=== PATIENT | male | born 1985 | race Caucasian/White ===

== ENCOUNTER 2017-03-14 18:32 | Emergency (ER) | payer MEDICAID, OTHER ==
[~2017-03-14] VITALS: Ht 182.9 cm; Wt 117.9 kg
[2017-03-14] MEDS ORDERED: KETOROLAC 60 MG/2 ML VIAL (J1885) IM ONE (19:30)
--- NOTE | 2017-03-14 20:41 | REP ---
LUMBOSACRAL SPINE SERIES: CLINICAL: Lower back pain. TECHNIQUE: AP, lateral, bilateral oblique and coned down views of the lumbosacral spine. FINDINGS: Alignment and lordosis maintained. No acute fracture/compression injury or subluxation. Subtle hypertrophic facet changes at the L4-5 and L5-S1 levels cannot be excluded. No evidence for spondylolysis or spondylolisthesis. IMPRESSION: Essentially normal age appropriate lumbosacral spine radiographs. Hypertrophic facet changes at the L5-S1 and L4-5 levels cannot be excluded. Signed by Bruno Reeves MD 03/24/2017 11:55 A
[2017-03-14] MEDS ORDERED: HYDR-3713 PO (20:53)
[2017-03-14] MEDS ORDERED: NAPR500T PO (20:53)
[2017-03-14] MEDS ORDERED: CYCL10TA PO (20:53)
[2017-03-14 20:54] VITALS: BP 130/74
[2017-03-14] MEDS ORDERED: NORCO 5/325MG TABLET (BULK FOR ED) PO ONE (21:00)
== END 2017-03-14 21:19 | disposition home or self-care (01) ==
LOC: M ED 19:33
DX: M51.37 Other intervertebral disc degeneration, lumbosacral region (principal); I10 Essential (primary) hypertension; E66.9 Obesity, unspecified; Z87.891 Personal history of nicotine dependence

== ENCOUNTER 2017-03-25 14:38 | Emergency (ER) | payer OTHER ==
[~2017-03-25] VITALS: Ht 182.9 cm; Wt 113.4 kg
[~2017-03-25 14:38] MED LIST: CYCL10TA PO; HYDR-3713 PO; NAPR500T PO
[2017-03-25] MEDS ORDERED: NS 1,000 ML IV ONE (15:15)
[2017-03-25 15:34] LABS: BASO % 0.4 % (0.0-1.0); EOS # 0.2 K/mm3 (0.0-0.50); EOS % 3.5 % (0.0-3.0); LARGE UNSTAINED CELL # 0.1 K/mm3 (0.0-0.4); LARGE UNSTAINED CELL % 1.2 % (0.0-4.0); LYMPH % 30.8 % (24.0-44.0); MEAN CORPUSCULAR HEMOGLOBIN 27.6 pg (27.0-33.0); MEAN CORPUSCULAR HGB CONC 32.9 g/dl (32.0-36.5); MEAN CORPUSCULAR VOLUME 83.8 fl (80.0-96.0); MONO # 0.3 K/mm3 (0.0-0.8); MONO % 4.4 % (0.0-5.0); NEUTROPHILS # 3.8 K/mm3 (1.8-7.7); NEUTROPHILS % 59.7 % (36.0-66.0); PLATELET COUNT, AUTOMATED 224 k/mm3 (150-450); RED CELL DISTRIBUTION WIDTH 14.6 % (11.5-14.5); WHITE BLOOD COUNT 6.3 K/mm3 (4.0-10.0)
[2017-03-25 15:59] LABS: ALBUMIN 3.5 GM/DL (3.2-5.2); ALBUMIN/GLOBULIN RATIO 0.88 (1.00-1.93); ALKALINE PHOSPHATASE 59 U/L (45-117); ALT/SGPT 29 U/L (12-78); ANION GAP 7 MEQ/L (8-16); AST/SGOT 12 U/L (15-37); BILIRUBIN,DIRECT < 0.1 MG/DL (0.0-0.2); BILIRUBIN,TOTAL 0.2 MG/DL (0.2-1.0); BLOOD UREA NITROGEN 16 MG/DL (7-18); CALCIUM LEVEL 8.6 MG/DL (8.5-10.1); CARBON DIOXIDE LEVEL 28 MEQ/L (21-32); CHLORIDE LEVEL 108 MEQ/L (98-107); CREATININE FOR GFR 1.14 MG/DL (0.70-1.30); GLOMERULAR FILTRATION RATE > 60.0 (>60); GLUCOSE, FASTING 77 MG/DL (70-105); POTASSIUM SERUM 3.8 MEQ/L (3.5-5.1); SODIUM LEVEL 143 MEQ/L (136-145); TOTAL PROTEIN 7.5 GM/DL (6.4-8.2)
[2017-03-25] MEDS ORDERED: ISOVUE-370 76% 100ML VIAL (Q9967) As Ordered ONE (16:13)
[2017-03-25 22:14] VITALS: BP 132/78
--- NOTE | 2017-03-26 07:09 | REP ---
CHEST, TWO VIEWS: HISTORY: Chest pain. COMPARISON: None. FINDINGS: The superior mediastinal structures are midline. The cardiac silhouette is unremarkable in size, shape and position. The diaphragmatic surfaces of the lungs are regular and the costophrenic angles are clear. The pulmonary mcfarland are clear. The imaged osseous structures are intact. IMPRESSION: There is no acute cardiopulmonary disease. Signed by Juanpablo Jasso DO 03/26/2017 09:20 A
--- NOTE | 2017-03-26 10:55 | REP ---
CT ANGIOGRAM CHEST: TECHNIQUE: Axial contrast enhanced images from the thoracic inlet to the upper abdomen using 100 mL Isovue 370 intravenous contrast material with multiplanar reformations. There is a tiny calcified granuloma in the left lower lobe. There are minor interstitial changes in the lower lobes bilaterally. There is no CT evidence of pulmonary embolism. There is no mediastinal, hilar or chest wall lymphadenopathy. The heart is not enlarged. There is no pleural or pericardial effusion. Visualized upper abdominal structures appear unremarkable. IMPRESSION: No CT evidence of pulmonary embolism. Signed by Miguel Henao MD 03/29/2017 03:59 P
--- NOTE | 2017-03-27 14:35 | ECGEPIP ---
Stationary ECG Study [facility] - ED Test Date: 2017-03-25 Pat Name: WESTLEY OATES Department: Room: - Gender: M Geriatrics Physician: abhijit : 1985 Requested By: MARY JANE Amaya Order Number: [id number] Reading MD: Corry Jackson Measurements Intervals [place] Rate: 118 P: 56 TN: 176 QRS: 141 QRSD: 122 T: 11 QT: 332 QTc: 466 Interpretive Statements SINUS TACHYCARDIA MARKED RIGHT AXIS DEVIATION RIGHT BUNDLE BRANCH BLOCK NO PRIOR FOR COMPARISON Electronically Signed On 03-27-2017 14:35:16 EDT by Corry Jackson
--- NOTE | 2017-03-27 14:40 | ECGEPIP ---
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
== END 2017-03-25 22:15 | disposition home or self-care (01) ==
LOC: EDBD 14:38 → M ED 16:21
DX: R07.9 Chest pain, unspecified (principal); F17.200 Nicotine dependence, unspecified, uncomplicated
CPT/HCPCS: 36415; 71020; 71275; 80048; 80076; 82375; 82550; 82553; 83880; 85025; 93005; 93041; 94760; 99284; Q9967

== ENCOUNTER 2018-11-21 18:33 | Emergency (ER) | payer MEDICAID, OTHER, SELFPAY ==
[~2018-11-21] VITALS: Ht 182.9 cm; Wt 122.7 kg
[~2018-11-21 18:33] MED LIST changes: +NAPR-50 PO; -NAPR500T PO
[2018-11-21] MEDS ORDERED: FURO20TA2 PO (18:48)
[2018-11-21] MEDS ORDERED: PERCOCET 5MG/325MG TAB PO ONE (19:15)
[2018-11-21 19:48] LABS: BLOOD UREA NITROGEN 15 MG/DL (7-18); CALCIUM LEVEL 8.5 MG/DL (8.5-10.1); CARBON DIOXIDE LEVEL 25 MEQ/L (21-32); CHLORIDE LEVEL 106 MEQ/L (98-107); CREATININE FOR GFR 0.84 MG/DL (0.70-1.30); GLOMERULAR FILTRATION RATE > 60.0 (>60); GLUCOSE, FASTING 100 MG/DL (70-100); POTASSIUM SERUM 3.9 MEQ/L (3.5-5.1); SODIUM LEVEL 137 MEQ/L (136-145)
[2018-11-21] MEDS ORDERED: MORPHINE 4 MG/ML 1ML VIAL/SYRINGE (J2270) IV ONE (20:45)
[2018-11-21] MEDS ORDERED: ISOVUE-370 76% 100ML VIAL (Q9967) As Ordered ONE (20:49)
[2018-11-21 21:00] LABS: ALBUMIN 3.4 GM/DL (3.2-5.2); ALT/SGPT 18 U/L (12-78); BILIRUBIN,DIRECT 0.2 MG/DL (0.0-0.2); BILIRUBIN,TOTAL 0.4 MG/DL (0.2-1.0); TOTAL PROTEIN 7.9 GM/DL (6.4-8.2)
[2018-11-21] MEDS ORDERED: FUROSEMIDE 20 MG/2 ML VIAL (J1940) IV ONE (23:00)
[2018-11-21 23:11] LABS: ABG BASE EXCESS 0.6 (-2.0-2.0); ABG HCO3 24.4 MEQ/L (22.0-26.0); ABG O2 SATURATION 95.3 % (95.0-99.0); ABG PARTIAL PRESSURE CO2 36.7 mmHg (35.0-45.0); ABG PARTIAL PRESSURE O2 71.5 mmHg (75.0-100.0); ABG TOTAL CO2 25.5 MEQ/L (22.0-29.0); ABG pH (ARTERIAL) 7.441 UNITS (7.350-7.450)
[2018-11-21] MEDS ORDERED: LevoFLOXacin 750 MG TABLET PO ONE (23:45)
[2018-11-21] MEDS ORDERED: NORCO 5/325MG TABLET (BULK FOR ED) PO ONE (23:45)
[2018-11-21] MEDS ORDERED: LEVA750T7 PO (23:47)
[2018-11-21] MEDS ORDERED: NORCOTAB PO (23:47)
[2018-11-21] MEDS ORDERED: LASI20TA3 PO (23:47)
[2018-11-21 23:53] VITALS: BP 135/76
--- NOTE | 2018-11-22 11:32 | REP ---
REPEAT DICTATION CT CHEST WITH CONTRAST: HISTORY: Further evaluation for right-sided chest pain. Right pleural effusion. Preliminary report is provided at the time examination by virtual radiology. Comparison CT study March 25, 2017. CT CONTRAST DOSE: 75 mL of intravenous Isovue 370. CT FINDINGS: There are bilateral infiltrates with atelectatic changes in the lower lobes. There is some similar opacity in the right middle lobe distribution. No evidence of aortic aneurysm or dissection is seen. There is somewhat less than optimal opacification of the pulmonary arterial tree. An equivocal filling defect is seen in the right lower lobe pulmonary arterial branches and pulmonary embolus cannot be completely excluded. No other significant abnormality. IMPRESSION: Bibasilar infiltrates. Equivocal filling defect right lower lobe pulmonary arterial tree may reflect pulmonary embolus. Consider repeat exam with better timed contrast bolus. Electronically Signed by Hayden Lowe MD 11/22/2018 06:44 P
--- NOTE | 2018-11-23 07:40 | REP ---
Clinical: Right rib pain Technique: Frontal view of the chest with multiple views of the right hemithorax. Findings: Frontal view of the chest demonstrates bibasilar atelectasis and possible small right pleural effusion. Multiple views of the right hemithorax demonstrates no obvious acute rib fracture or pathology. Impression: Bibasilar atelectasis and small right pleural effusion. No obvious acute right rib fracture. Electronically Signed by Bruno Reeves MD 11/21/2018 07:57 P
--- NOTE | 2018-11-23 09:23 | ED PDOC ---
Post-Departure Follow-Up pt advised to return for 24 hour recheck. unable to r/o PE and needs repeat CT Chest. unable to contact pt due to inactive phone number. pt aware of concerns upon discharge. further attempts to be made. AUTUMN Ortega DAVID R. FNP Nov 23, 2018 09:22
== END 2018-11-22 | disposition home or self-care (01) ==
LOC: M ED 18:33
DX: J18.1 Lobar pneumonia, unspecified organism (principal); R07.81 Pleurodynia; J98.11 Atelectasis; I10 Essential (primary) hypertension
CPT/HCPCS: 36600; 71101; 71260; 80048; 80076; 82803; 96374; 96375; 99284; J1940; J2270; Q9967

== ENCOUNTER → 2019-01-25 | Outpatient (REF) | payer MEDICARE ==
[~2019-01-25] MED LIST changes: +FURO20TA2 PO; +LASI20TA3 PO; +LEVA750T7 PO; +NORCOTAB PO
== END ==
LOC: M LAB REF 19:26
PROVIDERS: ATTEND Physician Assistant
DX: R31.9 Hematuria, unspecified (principal)

== ENCOUNTER → 2019-01-25 | Outpatient (CLI) | payer MEDICAID, MEDICARE, SELFPAY ==
[~2019-01-25] MED LIST changes: +ISOVUE-370 76% 100ML VIAL (Q9967) As Ordered ONE
--- NOTE | 2019-01-25 17:00 | REP ---
CT abdomen and pelvis without and with IV contrast: CT urogram. History: Dorsalis hip. Hematuria. Comparison CT study February 14, 2016. CT contrast dose: 100 ml of intravenous Isovue 370. CT findings: Preliminary digital manager pacu radiograph demonstrates an unremarkable bowel gas pattern. Axial CT images at lung window settings demonstrate a peripheral area of wedge-shaped consolidation in the right lower lobe posteriorly abutting the posterior pleural space. This is consistent with atelectasis and/or infiltrate. This is new from the 2016 prior study. It is also in a different location than the infiltrate seen in the lung bases on November 21, [address] The lung bases are otherwise clear. The liver and the spleen are normal in size and homogeneous in texture. No adrenal lesion is seen. No pancreatic abnormality is noted. The gallbladder is small and contracted, but unremarkable. The kidneys show no evidence of intrarenal calculus or hydronephrosis on either side. Postcontrast images demonstrate symmetric bilateral renal enhancement. No renal mass or cyst is seen. No periaortic mass or adenopathy is observed. Delayed scan images show no collecting system filling defect. The ureters describe a normal course to the bladder bilaterally. No filling defect is seen in the urinary bladder. Small and large intestinal bowel loops are unremarkable on the abdomen and pelvis. A normal appendix is seen. There are normal appearing mesenteric lymph nodes in the right lower quadrant. No abdominal wall defect is seen. Bone window settings show no significant bony abnormality. Impression: Peripheral infiltrate in the right lower lobe of the lung, different from the infiltrate seen November 21, 2018. Otherwise negative CT urogram. Electronically Signed by Hayden Lowe MD 01/25/2019 05:14 P
== END ==
LOC: M RAD 15:17
PROVIDERS: ATTEND Physician Assistant
DX: R91.8 Other nonspecific abnormal finding of lung field (principal); M54.9 Dorsalgia, unspecified; R31.9 Hematuria, unspecified
CPT/HCPCS: 74178; 87088; 87186; Q9967

== ENCOUNTER 2019-06-10 19:57 | Emergency (ER) | payer MEDICARE ==
[~2019-06-10] VITALS: Ht 188 cm; Wt 100.0 kg
[~2019-06-10 19:57] MED LIST changes: +HYDR-3715 PO; -ISOVUE-370 76% 100ML VIAL (Q9967) As Ordered ONE; -NAPR-50 PO; +NAPR-837 PO; -NORCOTAB PO
[2019-06-10] MEDS ORDERED: NS 1,000 ML IV ONE (20:45)
[2019-06-10] MEDS ORDERED: MORPHINE 2 MG/ML 1ML SYRINGE (J2270) IV ONE (20:45)
[2019-06-10 21:13] LABS: BASO % 0.5 % (0.0-1.0); EOS # 0.1 10^3/uL (0.0-0.50); EOS % 1.5 % (0.0-3.0); HEMATOCRIT 44.3 % (42.0-52.0); LYMPH # 2.2 10^3/uL (1.5-4.5); LYMPH % 30.1 % (24.0-44.0); MEAN CORPUSCULAR HEMOGLOBIN 27.8 pg (27.0-33.0); MEAN CORPUSCULAR HGB CONC 31.6 g/dl (32.0-36.5); MEAN CORPUSCULAR VOLUME 88.1 fl (80.0-96.0); MONO # 0.4 10^3/uL (0.0-0.8); MONO % 5.9 % (0.0-5.0); NEUTROPHILS # 4.6 10^3/uL (1.8-7.7); NEUTROPHILS % 61.9 % (36.0-66.0); PLATELET COUNT, AUTOMATED 225 10^3/uL (150-450); RED BLOOD COUNT 5.03 10^6/uL (4.30-6.10); WHITE BLOOD COUNT 7.4 10^3/uL (4.0-10.0)
[2019-06-10] MEDS: GASTROGRAFIN SOLUTION 30ML PO SCH ×2 (21:20→22:00)
[2019-06-10 21:49] LABS: ALBUMIN 3.5 GM/DL (3.2-5.2); ALT/SGPT 28 U/L (12-78); BILIRUBIN,DIRECT < 0.1 MG/DL (0.0-0.2); BILIRUBIN,TOTAL 0.3 MG/DL (0.2-1.0); BLOOD UREA NITROGEN 13 MG/DL (7-18); CALCIUM LEVEL 8.4 MG/DL (8.5-10.1); CARBON DIOXIDE LEVEL 26 MEQ/L (21-32); CHLORIDE LEVEL 114 MEQ/L (98-107); CREATININE FOR GFR 1.07 MG/DL (0.70-1.30); GLOMERULAR FILTRATION RATE > 60.0 (>60); GLUCOSE, FASTING 91 MG/DL (70-100); LIPASE 95 U/L (73-393); POTASSIUM SERUM 4.2 MEQ/L (3.5-5.1); SODIUM LEVEL 147 MEQ/L (136-145); TOTAL PROTEIN 7.5 GM/DL (6.4-8.2)
[2019-06-10] MEDS ORDERED: ISOVUE-370 76% 100ML VIAL (Q9967) As Ordered ONE (21:56)
[2019-06-10 23:30] VITALS: BP 126/70
--- NOTE | 2019-06-11 00:13 | REPVR ---
EXAM: CT Abdomen and Pelvis With Contrast EXAM DATE/TIME: 06/10/2019 10:48 PM CLINICAL HISTORY: 33 years old, male; Abdominal pain; Generalized; Additional info: Colitis eval TECHNIQUE: Imaging protocol: Axial computed tomography images of the abdomen and pelvis with intravenous contrast. Coronal and sagittal reformatted images were created and reviewed. Radiation optimization: All CT scans at this facility use at least one of these dose optimization techniques: automated exposure control; mA and/or kV adjustment per patient size (includes targeted exams where dose is matched to clinical indication); or iterative reconstruction. Contrast material: ISOVUE 370; Contrast volume: 100 ml; Contrast route: IV; COMPARISON: CT ABD PELVIS W/O FOL BY WIT 01/25/2019 4:04 PM FINDINGS: Lungs: Minimal bibasilar fibro-atelectatic change Liver: The liver attenuation is 61 Hounsfield units and the spleen is 98 Hounsfield units. Question of gallbladder sludge. Gallbladder and bile ducts: See Liver Finding. Pancreas: Normal. No ductal dilation. Spleen: Normal. No splenomegaly. Adrenals: Normal. No mass. Kidneys and ureters: There is a right renal cyst measuring 9 mm. Stomach and bowel: The colon is collapsed or contracted from the mid transverse colon to the rectum with no surrounding pericolonic induration. There is question of minimal colonic wall thickening. A few small diverticula are noted in the colon with no diverticulitis. Appendix: A normal appendix is seen. Intraperitoneal space: Normal. No free air. No significant fluid collection. Vasculature: Normal. No abdominal aortic aneurysm. Lymph nodes: Normal. No enlarged lymph nodes. Bladder: Unremarkable as visualized. Reproductive: Unremarkable as visualized. Bones/joints: No acute fracture. No dislocation. Soft tissues: Unremarkable. IMPRESSION: 1. Question of minimal nonspecific left colitis distal to the mid transverse colon. 2. Fatty infiltration of the liver. 3. Question of a few colonic diverticula without diverticulitis. COMMENT: Consistent with the [employer]'s Incidental Findings Committee Report (J Am Millie Radiol 2010): Unless the patient's specific circumstances suggest otherwise, any liver lesion 0.5 cm or less, any cystic kidney lesion less than 1.0 cm, and/or any adrenal lesion 1.0 cm or less not otherwise characterized in this report as possessing suspicious or indeterminate imaging features is/are highly likely to be benign and do not require follow-up imaging or biopsy. The Electronically signed by: Nadir Bryant On 06/11/2019 00:13:31 AM
[2019-06-11] MEDS ORDERED: CIPR-249 PO (00:26)
[2019-06-11] MEDS ORDERED: FLAG500T PO (00:26)
[2019-06-11] MEDS ORDERED: PRED20TA PO (00:26)
== END 2019-06-11 00:41 | disposition home or self-care (01) ==
LOC: M ED 19:57
DX: K52.9 Noninfective gastroenteritis and colitis, unspecified (principal); I10 Essential (primary) hypertension; Z79.899 Other long term (current) drug therapy
CPT/HCPCS: 74177; 80048; 80076; 83690; 85025; 96374; 99284; J2270; Q9963; Q9967

== ENCOUNTER → 2019-08-20 | Outpatient (REF) | payer MEDICARE ==
[~2019-08-20] MED LIST changes: +CIPR-249 PO; +FLAG500T PO; +PRED20TA PO
[2019-08-20 14:05] LABS: BASO % 0.7 % (0.0-1.0); EOS # 0.2 10^3/uL (0.0-0.5); EOS % 2.8 % (0.0-3.0); HEMATOCRIT 49.5 % (42.0-52.0); HEMOGLOBIN 15.5 g/dl (13.5-17.5); LYMPH # 2.6 10^3/uL (1.5-5.0); MEAN CORPUSCULAR HGB CONC 31.3 g/dl (32.0-36.5); MEAN CORPUSCULAR VOLUME 89.4 fl (80.0-96.0); MONO # 0.4 10^3/uL (0.0-0.8); MONO % 6.2 % (0.0-5.0); PLATELET COUNT, AUTOMATED 224 10^3/uL (150-450); RED BLOOD COUNT 5.54 10^6/uL (4.30-6.10); WHITE BLOOD COUNT 6.2 10^3/uL (4.0-10.0)
[2019-08-20 14:39] LABS: ALBUMIN 3.8 GM/DL (3.2-5.2); ALT/SGPT 27 U/L (12-78); BILIRUBIN,TOTAL 0.5 MG/DL (0.2-1.0); BLOOD UREA NITROGEN 13 MG/DL (7-18); CALCIUM LEVEL 9.1 MG/DL (8.5-10.1); CARBON DIOXIDE LEVEL 28 MEQ/L (21-32); CHLORIDE LEVEL 106 MEQ/L (98-107); CHOLESTEROL LEVEL 162 MG/DL (<200); CHOLESTEROL RISK RATIO 4.764 (<5); CREATININE FOR GFR 0.95 MG/DL (0.70-1.30); GLOMERULAR FILTRATION RATE > 60.0 (>60); GLUCOSE, FASTING 75 MG/DL (70-100); HDL CHOLESTEROL 34 MG/DL (>40); LDL CHOLESTEROL 101 MG/DL (<100); NON-HDL-C 128 MG/DL; POTASSIUM SERUM 4.1 MEQ/L (3.5-5.1); SODIUM LEVEL 142 MEQ/L (136-145); THYROID STIMULATING HORMONE 0.917 uIU/ML (0.358-3.740); TOTAL 25(OH) VITAMIN D 21.8 NG/ML (30.0-100.0); TOTAL PROTEIN 8.3 GM/DL (6.4-8.2); TRIGLYCERIDES LEVEL 133 MG/DL (<150)
== END ==
LOC: M SFHCADAM 10:35
PROVIDERS: ATTEND Physician Assistant Medical
DX: E66.01 Morbid (severe) obesity due to excess calories (principal); R03.0 Elevated blood-pressure reading, without diagnosis of hypertension; R10.11 Right upper quadrant pain

== ENCOUNTER → 2019-08-20 | Outpatient (CLI) | payer MEDICARE ==
--- NOTE | 2019-08-20 13:42 | REP ---
REASON: Back pain secondary to trauma. No priors. There is mild posterior disc space narrowing at every level. Vertebral body height and alignment is within normal limits. There is no spondylosis or spondylolisthesis. Degenerative facet joint changes are seen bilaterally at L5-S1. IMPRESSION: Chronic changes as described above. Electronically Signed by Juanpablo Jasso DO 08/20/2019 02:39 P
== END ==
LOC: M ADAMS 10:45
PROVIDERS: ATTEND Physician Assistant Medical
DX: M51.36 Other intervertebral disc degeneration, lumbar region (principal); S39.92XA Unspecified injury of lower back, initial encounter; W17.89XA Other fall from one level to another, initial encounter; Y92.9 Unspecified place or not applicable; E66.01 Morbid (severe) obesity due to excess calories; R19.8 Other specified symptoms and signs involving the digestive system and abdomen
CPT/HCPCS: 36415; 72110; 80053; 80061; 82306; 82784; 82941; 83516; 83690; 84439; 84443; 85025; 86316; G0463

== ENCOUNTER → 2019-08-20 | Outpatient (CLI) | payer MEDICARE ==
[2019-08-20 14:38] LABS: FREE T4 1.2 NG/DL (0.76-1.46); THYROID STIMULATING HORMONE 0.933 uIU/ML (0.358-3.740)
[2019-08-22 00:07] LABS: TISSUE TRANSGLUTAMINASE IgA <2 U/mL (0-3)
== END ==
LOC: M LABDRWAD 09:46
PROVIDERS: ATTEND Internal Medicine Gastroenterology
DX: R19.7 Diarrhea, unspecified (principal)

== ENCOUNTER 2019-09-20 13:53 | Emergency (ER) | payer MEDICARE ==
[~2019-09-20] VITALS: Ht 182.9 cm; Wt 134.8 kg
[2019-09-20] MEDS ORDERED: NAPROXEN 250 MG TAB PO ONE (14:45)
--- NOTE | 2019-09-20 15:23 | REP ---
Clinical: Trauma. Technique: AP, lateral, bilateral oblique views left hand . Findings: The osseous structures and joint spaces are intact and normal. There is no evidence for acute fracture or dislocation. Surrounding soft tissues are unremarkable. No subcutaneous emphysema or radiodense foreign body. Impression: No acute fracture or dislocation. Electronically Signed by Bruno Reeves MD 09/20/2019 03:14 P
[2019-09-20 15:36] VITALS: BP 138/80
== END 2019-09-20 15:43 | disposition home or self-care (01) ==
LOC: M ED 13:53
DX: S60.222A Contusion of left hand, initial encounter (principal); W27.8XXA Contact with other nonpowered hand tool, initial encounter; Y92.009 Unspecified place in unspecified non-institutional (private) residence as the place of occurrence of the external cause; F17.210 Nicotine dependence, cigarettes, uncomplicated; Z79.899 Other long term (current) drug therapy

== ENCOUNTER → 2019-09-27 | Outpatient (CLI) | payer MEDICARE ==
--- NOTE | 2019-09-27 07:21 | REP ---
Abdominal right upper quadrant ultrasound for right upper quadrant pain: There is significant acoustic shadowing posterior to the gallbladder. This suggests the gallbladder is packed with calculi. Upon review of the abdomen/pelvis CT dated 06/10/2019. No definite gallbladder calculi are identified, however the gallbladder lumen is diffusely slightly increased echogenicity. There may be multiple tiny noncalcified calculi within the gallbladder. The There is no gallbladder wall thickening. The gallbladder wall measures 3.1 mm thickness. There is no intrahepatic or extrahepatic biliary duct dilatation. The common biliary duct measures 3.5 mm in diameter. The hepatic parenchyma is hyperechoic compatible with hepato steatosis. There are no hepatic masses. The visualized areas of the pancreas are unremarkable. Much of the pancreas is obscured by bowel gas. The right kidney measures 12.1 x 5.2 x 4.4 cm and is normal size. There is no right renal hydronephrosis, calculus, solid mass or cystic mass. There is no right upper quadrant ascites. Impression: Probable multiple small gallbladder calculi packing the gallbladder resulting in significant acoustic shadowing. No biliary duct dilatation. Hepato steatosis. Much of the pancreas is obscured by bowel gas. No ascites. Electronically Signed by Migeul Ibarra MD 09/27/2019 07:12 A
== END ==
LOC: M RAD 06:15
PROVIDERS: ATTEND Physician Assistant Medical
DX: K80.20 Calculus of gallbladder without cholecystitis without obstruction (principal); K76.0 Fatty (change of) liver, not elsewhere classified

== ENCOUNTER 2019-10-10 18:21 | Emergency (ER) | payer MEDICARE ==
[~2019-10-10] VITALS: Ht 182.9 cm; Wt 127.3 kg
[2019-10-10] MEDS ORDERED: KETOROLAC 30 MG/ML VIAL (J1885) IV ONE (19:00)
[2019-10-10] MEDS ORDERED: ONDANSETRON 4MG/2ML VIAL (J2405) IV ONE (19:00)
[2019-10-10] MEDS ORDERED: NS 1,000 ML IV ONE (19:00)
[2019-10-10 19:14] LABS: BASO # 0.1 10^3/uL (0.0-0.2); BASO % 0.7 % (0.0-1.0); EOS # 0.2 10^3/uL (0.0-0.5); EOS % 2.4 % (0.0-3.0); HEMATOCRIT 48.5 % (42.0-52.0); HEMOGLOBIN 15.5 g/dl (13.5-17.5); LYMPH # 2.3 10^3/uL (1.5-5.0); MEAN CORPUSCULAR HEMOGLOBIN 27.6 pg (27.0-33.0); MEAN CORPUSCULAR VOLUME 86.3 fl (80.0-96.0); MONO # 0.5 10^3/uL (0.0-0.8); MONO % 6.3 % (0.0-5.0); NEUTROPHILS # 4.5 10^3/uL (1.5-8.5); NEUTROPHILS % 59.3 % (36.0-66.0); PLATELET COUNT, AUTOMATED 237 10^3/uL (150-450); RED BLOOD COUNT 5.62 10^6/uL (4.30-6.10); WHITE BLOOD COUNT 7.5 10^3/uL (4.0-10.0)
[2019-10-10 19:26] LABS: INR 1.09; PROTHROMBIN TIME 13.8 SECONDS (11.8-14.0)
[2019-10-10 19:42] LABS: ALBUMIN 3.8 GM/DL (3.2-5.2); ALT/SGPT 32 U/L (12-78); BILIRUBIN,DIRECT < 0.1 MG/DL (0.0-0.2); BILIRUBIN,TOTAL 0.2 MG/DL (0.2-1.0); BLOOD UREA NITROGEN 10 MG/DL (7-18); CALCIUM LEVEL 9.4 MG/DL (8.5-10.1); CARBON DIOXIDE LEVEL 28 MEQ/L (21-32); CHLORIDE LEVEL 107 MEQ/L (98-107); CREATININE FOR GFR 1.08 MG/DL (0.70-1.30); GLOMERULAR FILTRATION RATE > 60.0 (>60); GLUCOSE, FASTING 88 MG/DL (70-100); LIPASE 96 U/L (73-393); POTASSIUM SERUM 3.8 MEQ/L (3.5-5.1); SODIUM LEVEL 141 MEQ/L (136-145); TOTAL PROTEIN 8.2 GM/DL (6.4-8.2)
--- NOTE | 2019-10-10 20:58 | REPVR ---
PROCEDURE INFORMATION: Exam: US Abdomen Limited, Right Upper Quadrant Exam date and time: 10/10/2019 8:19 PM Age: 34 years old Clinical history: Abdominal pain; Additional info: HX gallstones/inc ruq pain TECHNIQUE: Imaging protocol: Real-time ultrasound of the abdomen with image documentation. Examination was focused on the right upper quadrant. COMPARISON: LIVER US 09/27/2019 6:43 AM FINDINGS: Liver: Liver small echogenic suggesting hepatic steatosis. No masses are seen. Gallbladder: There are shadowing calculi in the gallbladder. No definite pericholecystic fluid is seen. The gallbladder wall is not well visualized. Common bile duct: Normal. No stones. No dilation. Pancreas: Visualized pancreas is unremarkable. Right kidney: Normal. No mass. No hydronephrosis. IMPRESSION: 1. Gallbladder calculi without secondary signs of cholecystitis or biliary duct dilation. Consider HIDA scan if there is clinical concern for acute cholecystitis. 2. Hepatic steatosis. Electronically signed by: Jeffery Salazar On 10/10/2019 20:58:04 PM
[2019-10-10] MEDS ORDERED: MORPHINE 4 MG/ML 1ML VIAL/SYRINGE (J2270) IV ONE (21:00)
[2019-10-10] MEDS ORDERED: KETO10TAB PO (22:17)
[2019-10-10] MEDS ORDERED: ONDA4TAB6 PO (22:17)
[2019-10-10 22:23] VITALS: BP 116/71
[2019-10-10] MEDS ORDERED: ONDANSETRON 4 MG ORAL DISINTEGRATING TAB (Q0162 PER 1MG) PO ONE (22:30)
[2019-10-10] MEDS ORDERED: KETOROLAC TROMETHAMINE 10 MG TAB PO ONE (22:30)
--- NOTE | 2019-10-12 10:26 | ED PDOC ---
Post-Departure Follow-Up dr hoyt and marisa iyer faxed formal rpeort of us for fu Marco Suazo MD Oct 12, 2019 10:26
== END 2019-10-10 22:36 | disposition home or self-care (01) ==
LOC: M ED 18:21
DX: K80.20 Calculus of gallbladder without cholecystitis without obstruction (principal); K76.0 Fatty (change of) liver, not elsewhere classified; I10 Essential (primary) hypertension; G47.33 Obstructive sleep apnea (adult) (pediatric); F41.9 Anxiety disorder, unspecified; F17.210 Nicotine dependence, cigarettes, uncomplicated
CPT/HCPCS: 76705; 80048; 80076; 81001; 83690; 85025; 85610; 85730; 96361; 96374; 96375; 99284; J1885; J2270; J2405

== ENCOUNTER → 2019-11-05 | Outpatient (CLI) | payer MEDICARE ==
[~2019-11-05] MED LIST changes: +KETO10TAB PO; +ONDA4TAB6 PO
--- NOTE | 2019-11-05 09:33 | REP ---
Hepatobiliary scan: History: Right upper quadrant pain. Known gallstones. Technique : 6.6 mCi of technetium 99m mebrofenin is injected and sequential anterior abdominal images are acquired. Findings: The initial hepatocellular parenchymal uptake phase is normal and homogeneous. Intrahepatic and extrahepatic biliary tract labeling is seen on the 15-minute image along with duodenal labeling. Subsequent images demonstrate normal washout from the liver parenchyma into the small intestine. The gallbladder is not labeled during the initial hour of imaging. Impression: Delayed visualization of the gallbladder consistent with cholecystitis. Otherwise normal hepatobiliary scan. Electronically Signed by Hayden Lowe MD 11/05/2019 09:24 A
== END ==
LOC: M RAD 07:57
PROVIDERS: ATTEND Surgery
DX: R10.11 Right upper quadrant pain (principal)
CPT/HCPCS: 78226; A9537

== ENCOUNTER 2019-11-09 12:12 | Day surgery (SDC) | payer MEDICARE ==
[~2019-11-09] VITALS: Ht 182.9 cm; Wt 122.4 kg
[~2019-11-09 12:12] MED LIST changes: +GLYCOPYRROLATE INJ 0.2 MG/ML 2 ML VIAL As Ordered ONE; +LIDOCAINE 2% INJ 100 MG/5 ML SDV (FOR ANES.) As Ordered ONE; +NS 1,000 ML IV ONE; +PROPOFOL 200 MG/20 ML VIAL As Ordered ONE
--- NOTE | 2019-11-09 14:09 | ROOR ---
Patient Name: Nader Shoemaker Procedure Date: 11/09/2019 1:38 PM Date of : 1985 Age: 34 Room: [facility] Gender: Male Note Status: Finalized Procedure: Colonoscopy Indications: Generalized abdominal pain, Suspected irritable bowel syndrome, Functional diarrhea Providers: Eamon HASTINGS MD Referring MD: ALETHA Dumont Requesting Provider: Medicines: Monitored Anesthesia Care Complications: No immediate complications. Procedure: Pre-Anesthesia Assessment: - The heart rate, respiratory rate, oxygen saturations, blood pressure, adequacy of pulmonary ventilation, and response to care were monitored throughout the procedure. The Colonoscope was introduced through the anus and advanced to 15 cm into the ileum. The colonoscopy was performed without difficulty. The patient tolerated the procedure well. The quality of the bowel preparation was good. Findings: The perianal and digital rectal examinations were normal. The colon (entire examined portion) appeared normal. The terminal ileum appeared normal. Biopsies for histology were taken with a cold forceps for evaluation of microscopic colitis. Small Internal Hemorrhoids. Impression: - The entire examined colon is normal. - The examined portion of the ileum was normal. - Small Internal Hemorrhoids. - Biopsies were taken with a cold forceps for evaluation of microscopic colitis. - (Irritable Bowel Syndrome/IBS suspected.) Recommendation: - Continue present medications. - Use fiber, for example Citrucel, Fibercon, Konsyl or Metamucil. - Lactose free diet. - Telephone endoscopist for pathology results in 2 weeks. Eamon Hastings MD Eamon HASTINGS MD 11/09/2019 2:09:35 PM Electronically signed by Eamon HASTINGS MD Number of Addenda: 0 Note Initiated On: 11/09/2019 1:38 PM Estimated Blood Loss: Estimated blood loss: none.
--- NOTE | 2019-11-09 14:16 | ROOR ---
Patient Name: Nader Shoemaker Procedure Date: 11/09/2019 2:13 PM Date of : 1985 Age: 34 Gender: Male Note Status: Finalized Procedure: Upper GI endoscopy Indications: Epigastric abdominal pain, Endoscopy to assess diarrhea in patient suspected of having disease of the small-bowel Providers: Eamon HASTINGS MD Referring MD: ALETHA Dumont Requesting Provider: Medicines: Monitored Anesthesia Care Complications: No immediate complications. Procedure: Pre-Anesthesia Assessment: - The heart rate, respiratory rate, oxygen saturations, blood pressure, adequacy of pulmonary ventilation, and response to care were monitored throughout the procedure. The Endoscope was introduced through the mouth, and advanced to the second part of duodenum. The upper GI endoscopy was accomplished without difficulty. The patient tolerated the procedure well. Findings: The examined esophagus was normal. Scattered minimal inflammation was found in the gastric antrum. Biopsies were taken with a cold forceps for histology. The exam of the stomach was otherwise normal. The examined duodenum was normal. Biopsies for histology were taken with a cold forceps for evaluation of celiac disease. Impression: - Normal esophagus. - Minimal gastritis. Biopsied. - Normal examined duodenum. Biopsied. Recommendation: - Continue present medications. Eamon Hastings MD Eamon HASTINGS MD 11/09/2019 2:15:58 PM Electronically signed by Eamon HASTINGS MD Number of Addenda: 0 Note Initiated On: 11/09/2019 2:13 PM Estimated Blood Loss: Estimated blood loss: none.
[2019-11-09 14:32] VITALS: BP 139/65
== END 2019-11-09 14:40 | disposition home or self-care (01) ==
LOC: M OPP 12:12
PROVIDERS: ATTEND Internal Medicine Gastroenterology
DX: K59.1 Functional diarrhea (principal); R10.84 Generalized abdominal pain; K29.70 Gastritis, unspecified, without bleeding; R10.13 Epigastric pain; K64.8 Other hemorrhoids

== ENCOUNTER 2019-11-26 23:42 | Emergency (ER) | payer MEDICARE ==
[~2019-11-26] VITALS: Ht 182.9 cm; Wt 127.3 kg
[~2019-11-26 23:42] MED LIST changes: -GLYCOPYRROLATE INJ 0.2 MG/ML 2 ML VIAL As Ordered ONE; -LIDOCAINE 2% INJ 100 MG/5 ML SDV (FOR ANES.) As Ordered ONE; -NS 1,000 ML IV ONE; -PROPOFOL 200 MG/20 ML VIAL As Ordered ONE
[2019-11-27 00:20] LABS: BASO % 0.5 % (0.0-1.0); EOS # 0.2 10^3/uL (0.0-0.5); EOS % 2.8 % (0.0-3.0); HEMATOCRIT 49.2 % (42.0-52.0); HEMOGLOBIN 15.1 g/dl (13.5-17.5); LYMPH # 2.7 10^3/uL (1.5-5.0); LYMPH % 32.9 % (24.0-44.0); MEAN CORPUSCULAR HEMOGLOBIN 26.6 pg (27.0-33.0); MEAN CORPUSCULAR HGB CONC 30.7 g/dl (32.0-36.5); MEAN CORPUSCULAR VOLUME 86.6 fl (80.0-96.0); MONO # 0.6 10^3/uL (0.0-0.8); MONO % 7.1 % (0.0-5.0); NEUTROPHILS # 4.6 10^3/uL (1.5-8.5); NEUTROPHILS % 56.1 % (36.0-66.0); PLATELET COUNT, AUTOMATED 221 10^3/uL (150-450); RED BLOOD COUNT 5.68 10^6/uL (4.30-6.10); WHITE BLOOD COUNT 8.2 10^3/uL (4.0-10.0)
[2019-11-27] MEDS: MORPHINE 4 MG/ML 1ML VIAL/SYRINGE (J2270) IV PRN ×2 (00:41→02:12)
[2019-11-27 00:44] LABS: ALBUMIN 3.4 GM/DL (3.2-5.2); ALT/SGPT 22 U/L (12-78); BILIRUBIN,DIRECT 0.1 MG/DL (0.0-0.2); BILIRUBIN,TOTAL 0.2 MG/DL (0.2-1.0); BLOOD UREA NITROGEN 15 MG/DL (7-18); CALCIUM LEVEL 9.1 MG/DL (8.5-10.1); CARBON DIOXIDE LEVEL 27 MEQ/L (21-32); CHLORIDE LEVEL 108 MEQ/L (98-107); CREATININE FOR GFR 0.98 MG/DL (0.70-1.30); GLOMERULAR FILTRATION RATE > 60.0 (>60); GLUCOSE, FASTING 105 MG/DL (70-100); LIPASE 101 U/L (73-393); POTASSIUM SERUM 3.8 MEQ/L (3.5-5.1); SODIUM LEVEL 143 MEQ/L (136-145); TOTAL PROTEIN 7.6 GM/DL (6.4-8.2)
[2019-11-27] MEDS ORDERED: ONDANSETRON 4MG/2ML VIAL (J2405) IV ONE (00:45)
[2019-11-27 02:12] VITALS: BP 110/60
--- NOTE | 2019-11-27 02:34 | REPVR ---
PROCEDURE INFORMATION: Exam: US Abdomen Limited, Right Upper Quadrant Exam date and time: 11/27/2019 1:25 AM Age: 34 years old Clinical indication: Abdominal pain; Colic; Additional info: Ruq abd pain TECHNIQUE: Imaging protocol: Real-time ultrasound of the abdomen with image documentation. Examination was focused on the right upper quadrant. COMPARISON: GALLBLADDER US 10/10/2019 8:03 PM FINDINGS: Liver: Steatosis. Gallbladder: Cholelithiasis. Mild gallbladder wall thickening. No other specific signs of acute cholecystitis. Common bile duct: Normal. No stones. No dilation. Pancreas: Visualized pancreas is unremarkable. Right kidney: Normal. No mass. No hydronephrosis. IMPRESSION: Cholelithiasis. Mild gallbladder wall thickening. No other specific signs of acute cholecystitis. Electronically signed by: Tom Krishnan On 11/27/2019 02:33:21 AM
[2019-11-27] MEDS ORDERED: LEVS0.124 SL (03:06)
[2019-11-27] MEDS ORDERED: HYOSCYAMINE SULFATE 0.125 MG SUBL TABLET PO ONE (03:15)
[2019-11-27] MEDS ORDERED: OXYCODONE/APAP 5MG/325MG(BULK FOR ED) 1 TABLET PO ONE (03:15)
== END 2019-11-27 03:36 | disposition home or self-care (01) ==
LOC: M ED 23:42
DX: K80.20 Calculus of gallbladder without cholecystitis without obstruction (principal); F17.218 Nicotine dependence, cigarettes, with other nicotine-induced disorders
CPT/HCPCS: 76705; 80048; 80076; 81001; 83690; 85025; 96374; 96375; 96376; 99284; J2270; J2405

== ENCOUNTER 2020-01-22 06:08 | Day surgery (SDC) | payer MEDICARE ==
[~2020-01-22] VITALS: Ht 182.9 cm; Wt 126.9 kg
[~2020-01-22 06:08] MED LIST changes: +BUPIVACAINE HCL 0.25% 30 ML VIAL As Ordered ONE; +EPINEPHrine INJ 1 MG/ML 1ML VIAL As Ordered ONE; +LEVS0.124 SL; +LR 1,000 ML IV ONE
[2020-01-22] MEDS ORDERED: ROCURONIUM BROMIDE 50 MG/5 ML VIAL As Ordered ONE ×2 (07:48→08:35)
[2020-01-22] MEDS ORDERED: METOCLOPRAMIDE INJ 10MG/2ML VIAL (J2765) As Ordered ONE (07:48)
[2020-01-22] MEDS ORDERED: ONDANSETRON 4MG/2ML VIAL (J2405) As Ordered ONE (07:48)
[2020-01-22] MEDS ORDERED: MIDAZOLAM INJ 2 MG/2 ML VIAL (J2250) As Ordered ONE (07:48)
[2020-01-22] MEDS ORDERED: LIDOCAINE 2% INJ 100 MG/5 ML SDV (FOR ANES.) As Ordered ONE (07:48)
[2020-01-22] MEDS ORDERED: dexameTHASONE 4 MG/ML 1ML VIAL (J1100) As Ordered ONE (07:48)
[2020-01-22] MEDS ORDERED: fentaNYL 250 MCG/5 ML INJECTION (J3010) As Ordered ONE (07:48)
[2020-01-22] MEDS ORDERED: SUGAMMADEX SODIUM 500 MG/5 ML VIAL (BRIDION) As Ordered ONE (07:48)
[2020-01-22] MEDS ORDERED: propofoL 200 MG/20 ML VIAL As Ordered ONE (07:48)
[2020-01-22] MEDS ORDERED: LABETALOL HCL 100 MG/20 ML VIAL As Ordered ONE (08:09)
[2020-01-22] MEDS ORDERED: KETOROLAC 60 MG/2 ML VIAL (J1885) As Ordered ONE (08:12)
[2020-01-22] MEDS ORDERED: ACETAMINOPHEN 1000MG 100ML IV BTL (OFIRMEV) (J0131 PER 10MG) As Ordered ONE (08:12)
[2020-01-22] MEDS ORDERED: DESFLURANE 240 ML INHALANT As Ordered ONE (08:32)
[2020-01-22] MEDS: BUPIVACAINE HCL 0.25% 30 ML VIAL As Ordered ONE ×2 (08:59→09:02)
[2020-01-22] MEDS ORDERED: HYDR-3713 PO (09:29)
[2020-01-22] MEDS ORDERED: LR 1,000 ML IV SCH (09:45)
[2020-01-22] MEDS ORDERED: ONDANSETRON 4MG/2ML VIAL (J2405) IV PRN (09:45)
[2020-01-22] MEDS ORDERED: oxyCODONE 5MG TAB PO PRN (09:45)
[2020-01-22] MEDS ORDERED: HYDROMORPHONE HCL 0.5 MG/ 0.5 ML SYRINGE (J1170 PER 1) IV PRN (09:45)
[2020-01-22] MEDS: fentaNYL 100 MCG/2 ML INJECTION (J3010) IV PRN ×4 (09:50→10:05)
[2020-01-22] MEDS ORDERED: fentaNYL 100 MCG/2 ML INJECTION (J3010) As Ordered ONE (09:55)
[2020-01-22] MEDS ORDERED: ACETAMINOPHEN TAB 650MG DOSE (2X325MG) PO PRN (10:00)
[2020-01-22] MEDS ORDERED: NORCO, ANEXSIA 5/325MG TABLET (HYDROcodone/ACETAMINOPHEN) PO PRN (10:00)
[2020-01-22] MEDS ORDERED: IBUPROFEN 600 MG TAB PO PRN (10:00)
[2020-01-22 11:28] VITALS: BP 114/60
--- NOTE | 2020-01-22 22:06 | RO ---
DATE OF PROCEDURE: 01/22/2020 PREOPERATIVE DIAGNOSIS: Cholelithiasis with chronic cholecystitis and cystic duct obstruction. POSTOPERATIVE DIAGNOSIS: Cholelithiasis with chronic cholecystitis and cystic duct obstruction. PROCEDURE PERFORMED: Laparoscopic cholecystectomy. SURGEON: Dr. Josiah Bhagat HEAD ROSE GROWER: ANESTHESIA: General. INDICATIONS FOR PROCEDURE: Patient is a 34-year-old man with a history of upper abdominal pain of several months' duration. He had a significant episode that led to evaluation in the emergency department. He was found to have cholelithiasis and a subsequent nuclear biliary scan showed obstruction of the cystic duct with non-filling of the gallbladder. He is now for a laparoscopic cholecystectomy. DESCRIPTION OF PROCEDURE: The patient was brought to the operating room and placed on the table in a supine position. He was placed under general endotracheal anesthesia. The patient's abdomen was prepped and draped in a sterile fashion. 0.25% Marcaine was infiltrated at each of the trocar sites as needed. The initial incision was in the left upper quadrant approximately 5 cm to the left of the midline. A short incision was made and a Veress needle was inserted. After positive hanging drop test, the abdomen was insufflated with carbon dioxide gas. A was placed over the 5 mm scope and advanced through the abdominal wall without difficulty. Initial examination showed abundant omental fat obscuring all intra-abdominal organs with the exception of portions of the right and left lobes of the liver. The patient was tilted to a reverse Trendelenburg position and rolled slightly to the left. An 11 mm port was placed slightly to the right of the midline and perhaps 5 cm superior to the umbilicus. The camera was shifted to this location. A 5 mm port was placed in the right upper quadrant. A grasper was inserted. Some omentum was pulled down off the edge of the liver and the edge of the liver was elevated. The thickened gallbladder was identified, and there were adhesions of the surrounding omentum to the gallbladder. The gallbladder was grasped and elevated and some of these adhesions were divided using the hook cautery from the left upper quadrant. Once the gallbladder was better exposed, a final trocar which was 5 mm in diameter was placed in the lateral right upper quadrant. The gallbladder was grasped and elevated. Dissection continued freeing the gallbladder from surrounding adhesions. There was definite thickening of the gallbladder. As the gallbladder was freed toward the gallbladder neck, two structures were identified. One of these appeared to represent the cystic duct arising at the gallbladder neck. This was doubly clipped with hemoclips and divided. With further dissection, the cholecystic artery was better identified and this was also doubly clipped and divided. The gallbladder was then dissected free from the gallbladder bed and placed within an Endopouch. The right upper quadrant was irrigated and inspected. There was no evidence of bleeding or bile leak. The patient was then returned to a flat position. The abdomen was deflated and the trocars were removed. To remove the gallbladder, it was necessary to extend the skin incision in the right midabdomen to approximately 3-1/2 cm. The subcutaneous fatty tissues were opened and the anterior fascia was then also opened. The muscle fibers of the rectus were spread, and the peritoneum was opened slightly. There was a single large stone, perhaps 3-4 cm in maximum diameter within the gallbladder. The gallbladder was passed off as a specimen. The peritoneum and posterior fascia of the rectus sheath were closed with interrupted simple sutures of #2-0 Vicryl. The anterior sheath was then also closed with interrupted simple sutures of #2-0 Vicryl. The incisions were all closed with buried #4-0 Vicryl and Steri-Strips. Light dressings were applied. The patient tolerated the procedure well without apparent complication. He was awakened in the operating room, extubated and moved to the recovery room in stable condition.
== END 2020-01-22 11:39 | disposition home or self-care (01) ==
LOC: M SDC 06:08
PROVIDERS: ATTEND Surgery
DX: K80.10 Calculus of gallbladder with chronic cholecystitis without obstruction (principal); I10 Essential (primary) hypertension; G43.909 Migraine, unspecified, not intractable, without status migrainosus; F17.218 Nicotine dependence, cigarettes, with other nicotine-induced disorders
CPT/HCPCS: 47562; 88304; J0131; J1100; J1885; J2250; J2405; J2765; J3010

== ENCOUNTER 2023-05-02 16:49 | Emergency (ER) | payer MEDICARE ==
[~2023-05-02] VITALS: Ht 182.9 cm; Wt 148.8 kg
[~2023-05-02 16:49] MED LIST changes: -BUPIVACAINE HCL 0.25% 30 ML VIAL As Ordered ONE; +CYCL-707 PO; -CYCL10TA PO; -EPINEPHrine INJ 1 MG/ML 1ML VIAL As Ordered ONE; +HYDR12.55 PO; -LR 1,000 ML IV ONE
[2023-05-02 16:51] VITALS: BP 172/82; TEMP 98.2; O2SAT 99
== END 2023-05-02 19:18 | disposition left against medical advice (07) ==
LOC: M ED 16:49
DX: Z53.21 Procedure and treatment not carried out due to patient leaving prior to being seen by health care provider (principal)

== ENCOUNTER → 2025-09-12 | Outpatient (CLI) | payer MEDICARE ==
[~2025-09-12] MED LIST changes: +HYDR-3490 PO; +ONDA-282 PO; -ONDA4TAB6 PO
== END ==
LOC: M ADAMS 10:49
PROVIDERS: ATTEND Physician Assistant Medical
DX: R19.5 Other fecal abnormalities (principal)

== ENCOUNTER → 2025-09-12 | Outpatient (REF) | payer MEDICARE ==
[2025-09-12 14:55] LABS: ESTIMATED AVERAGE GLUCOSE 117.0 MG/DL (60-110)
== END ==
LOC: M SFHCADAM 10:44
PROVIDERS: ATTEND Physician Assistant Medical
DX: R73.01 Impaired fasting glucose (principal); R19.5 Other fecal abnormalities